=== PATIENT | female | born 1980 | race American Indian/Alaskan Native ===

== ENCOUNTER 2021-08-25 07:03 | Outpatient (CLI) | payer OTHER ==
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
== END 2021-08-25 07:04 | disposition home or self-care (01) ==
LOC: US 07:03
PROVIDERS: ATTEND Internal Medicine
DX: R10.32 Left lower quadrant pain (principal)